=== PATIENT | female | born 1985 | race Caucasian/White ===

== ENCOUNTER 2016-12-17 23:43 | Emergency (ER) | payer MEDICAID ==
[~2016-12-17] VITALS: Ht 144.8 cm; Wt 52.2 kg
[~2016-12-17 23:43] MED LIST: ACYCLOVIR400 MG ORAL; AZITHROMYCIN250 MG ORAL; BENADRYL25 MG ORAL; NKM; NORCO 5-325 TA1 EACH ORAL
[2016-12-18 00:10] VITALS: BP 109/74
[2016-12-18] MEDS ORDERED: AMOXICILLIN500 MG ORAL (00:15)
[2016-12-18] MEDS ORDERED: IBUPROFEN600 MG ORAL (00:15)
[2016-12-18] MEDS ORDERED: PredniSONE 20mg tab ORAL ONE (00:15)
--- NOTE | 2016-12-18 00:16 | Emergency Room Report ---
History of Present Illness General Chief Complaint: Sore Throat Source: Patient Present Illness [facility] This is a 31-year-old female with no past medical history. She presents with chief complaint of sore throat. She had mild pain for the last 2 weeks but the last 2 days became more severe. Localized the right side. Worse with swallowing. Denies any fever or chills. Denies any nausea vomiting. No cough or congestion. She is currently breast-feeding. Allergies: Coded Allergies: No Known Allergies (Unverified , 03/14/14) Patient History Past Medical History: none, see triage record, old chart reviewed Past Surgical History: none Pertinent Family History: none Last Menstrual Period: 2014 Now: No Immunizations: other Reviewed Nursing Documentation: PMH: Agreed, PSxH: Agreed Nursing Documentation-PMH Past Medical History: No Stated History Review of Systems Eye: Denies: blurred vision, eye pain ENT: Reports: throat pain, throat swelling, Denies: ear pain, nose congestion Respiratory: Denies: cough, shortness of breath Cardiovascular: Denies: chest pain, palpitations Gastrointestinal: Denies: abdominal pain, diarrhea, nausea, vomiting Musculoskeletal: Denies: back pain, joint pain Skin: Denies: rash Neurological: Denies: headache, numbness Endocrine: Denies: increased thirst, increased urine Hematologic/Lymphatic: Denies: easy bruising All Other Systems: negative except mentioned in HPI Physical Exam Vital Signs Date Time Temp Pulse Resp B/P Pulse Ox O2 Delivery O2 Flow Rate FiO2 12/17/16 23:56 97.9 80 16 109/74 98 Room Air vitals normal Sp02 EP Interpretation: reviewed, normal General Appearance: well appearing, no apparent distress, alert Head: normocephalic, atraumatic Eyes: bilateral eye EOMI, bilateral eye PERRL ENT: hearing grossly normal, uvula midline, tonsillar swelling - Right side, pharyngeal erythema, tonsillar exudate Neck: full range of motion, supple, no meningismus Respiratory: chest non-tender, lungs clear, normal breath sounds Cardiovascular #1: regular rate, rhythm, no murmur Gastrointestinal: normal bowel sounds, non tender, no mass, no organomegaly, no bruit, non-distended Musculoskeletal: back normal, gait/station normal, normal range of motion Psychiatric: mood/affect normal Skin: warm/dry Medical Decision Making Diagnostic Impression: Primary Impression: Acute infective tonsillitis Qualified Codes: J03.90 - Acute tonsillitis, unspecified ER Course Patient presents with acute tonsillitis. No evidence of retropharyngeal abscess. No evidence of peritonsillar abscess. There is no trismus. No evidence of Cy angina. We'll discharge home with antibiotics. Last Vital Signs Date Time Temp Pulse Resp B/P Pulse Ox O2 Delivery O2 Flow Rate FiO2 12/18/16 00:10 97.9 82 16 109/74 98 Room Air Status: improved Disposition: HOME, SELF-CARE Condition: Stable Scripts Ibuprofen* (MOTRIN*) 600 Mg Tablet 600 MG ORAL THREE TIMES A DAY, #30 TAB 0 Refills Prov: ELIZABETH MOULTON M.D. 12/18/16 Amoxicillin* (AMOXIL*) 500 Mg Capsule 500 MG ORAL THREE TIMES A DAY, #21 CAP Prov: ELIZABETH MOULTON M.D. 12/18/16 Referrals: NOT CHOSEN [facility]/,REFERRING (PCP) Patient Instructions: Tonsillitis Additional Instructions: Followup with your DrBreana in 7 days. Hermann bradshaw. Return if symptom worsen. ELIZABETH MOULTON M.D. Dec 18, 2016 00:16
[2016-12-18 00:24] VITALS: BP 109/74
== END 2016-12-18 00:25 | disposition home or self-care (01) ==
LOC: EMR 12-18 00:11
DX: J03.90 Acute tonsillitis, unspecified (principal)
CPT/HCPCS: 99284

== ENCOUNTER 2017-05-30 19:24 | Emergency (ER) | payer SELFPAY ==
[~2017-05-30] VITALS: Ht 144.8 cm; Wt 48.5 kg
[~2017-05-30 19:24] MED LIST changes: +AMOXICILLIN500 MG ORAL; +IBUPROFEN600 MG ORAL
[2017-05-30] MEDS ORDERED: XANAX0.5 MG ORAL ×2 (19:31→19:56)
[2017-05-30 19:40] VITALS: BP 124/81
[2017-05-30 20:04] VITALS: BP 124/81
--- NOTE | 2017-05-30 21:42 | Emergency Room Report ---
History of Present Illness General Chief Complaint: Medication Refill Source: Patient Present Illness HPI The patient is a 31-year-old female with a history of anxiety disorder presenting for medication refill. The patient states that she was diagnosed with anxiety disorder has a psychiatrist one year prior. She use to take alprazolam 0.5 mg 3 times a day but has not needed to recently. She states that she has been undergoing increased stress due to relationship issues. She has not been able to sleep for the past 3 days and states that she has been increasingly anxious. She has not been able to see her primary doctor or psychiatrist during this time. She denies any other symptoms including N, V, F, chills, SOB, CP, dizziness Allergies: Coded Allergies: No Known Allergies (Unverified , 03/14/14) Patient History Past Medical History: see triage record, psych hx - anxiety Pertinent Family History: none Last Menstrual Period: now Now: No Reviewed Nursing Documentation: PMH: Agreed, PSxH: Agreed Nursing Documentation-PMH Past Medical History: No History, Except For Review of Systems All Other Systems: negative except mentioned in HPI Physical Exam Vital Signs Date Time Temp Pulse Resp B/P Pulse Ox O2 Delivery O2 Flow Rate FiO2 05/30/17 19:27 98.2 73 22 124/81 97 Room Air Sp02 EP Interpretation: reviewed, normal General Appearance: no apparent distress, alert, GCS 15, non-toxic Head: normocephalic, atraumatic Eyes: bilateral eye PERRL, bilateral eye normal inspection ENT: hearing grossly normal, normal pharynx, no angioedema, normal voice Respiratory: chest non-tender, lungs clear, normal breath sounds, speaking full sentences Cardiovascular #1: regular rate, rhythm, no edema Musculoskeletal: back normal, gait/station normal, normal range of motion, non- tender Neurologic: alert, oriented x3, responsive, motor strength/tone normal, sensory intact, speech normal Psychiatric: anxious Skin: normal color, no rash, warm/dry, well hydrated Lymphatic: no adenopathy Medical Decision Making PA Attestation Dr. Smith is my supervising physician. Patient management was discussed with my supervising physician Diagnostic Impression: Primary Impression: Anxiety Additional Impression: Encounter for medication refill ER Course The patient is a 31-year-old female with a history of anxiety disorder presenting for anxiety Differential diagnoses considered but not limited to anxiety, depression, medication abuse, suicidal ideation PE; vitals WNL. Mildly anxious otherwise exam unremarkable The patient will be discharged home with a limited prescription for Xanax. She is to follow up with primary doctor in psychiatry. She is given information regarding [facility] facility. She was told that anxiety disorder cannot be managed probably from the emergency department ER precautions given Last Vital Signs Date Time Temp Pulse Resp B/P Pulse Ox O2 Delivery O2 Flow Rate FiO2 05/30/17 20:04 98.2 22 124/81 97 Room Air 05/30/17 19:27 73 Status: improved Disposition: HOME, SELF-CARE Condition: Improved Scripts Alprazolam* (XANAX*) 0.5 Mg Tablet 0.5 MG ORAL THREE TIMES A DAY, #12 TAB 0 Refills Prov: BRODY RAI 05/30/17 Referrals: NOT CHOSEN [facility]/,REFERRING (PCP) Patient Instructions: Medicine Refill at the Emergency Department, Panic Attacks Additional Instructions: I discussed my findings with the patient. All questions and concerns have been answered. Treatment and medication compliance have been addressed. I advised the patient that they need to follow up with PMD in 3-5 days. Return to ED if symptoms worsen, new symptoms arise, or if needed for any reason. Patient verbalized understanding of discharge instructions. Please follow up with psychiatry as soon as possible. Information regarding [facility] facility given BRODY RAI May 30, 2017 21:42
== END 2017-05-30 20:02 | disposition home or self-care (01) ==
LOC: EMR 20:02
DX: F41.9 Anxiety disorder, unspecified (principal); Z76.0 Encounter for issue of repeat prescription
CPT/HCPCS: 99283